=== PATIENT | male | born 2000 | race Caucasian/White ===

== ENCOUNTER 2021-07-07 10:27 | Emergency (ER) | payer OTHER, SELFPAY ==
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
[2021-07-07 10:41] VITALS: BP 148/88; PULSE 112; RESP 14; TEMP 37.1; O2SAT 100
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
== END 2021-07-07 11:12 | disposition home or self-care (01) ==
PROVIDERS: Emergency Provider Nurse Practitioner
DX: S60.221A Contusion of right hand, initial encounter (principal); V49.9XXA Car occupant (driver) (passenger) injured in unspecified traffic accident, initial encounter
CPT/HCPCS: 73130; 99213; G0463